=== PATIENT | female | born 1940 | race Caucasian/White ===

== ENCOUNTER 2022-08-25 08:04 | Outpatient (CLI) | payer MEDICARE | END 2022-08-25 08:05 | disposition home or self-care (01) | LOC: CSHWCC 08:04 | PROVIDERS: ATTEND Nurse Practitioner Family | DX: I70.244 Atherosclerosis of native arteries of left leg with ulceration of heel and midfoot (principal); L97.422 Non-pressure chronic ulcer of left heel and midfoot with fat layer exposed | CPT/HCPCS: 97139; G0463; 99204 ==

== ENCOUNTER 2022-09-20 10:41 | Outpatient (CLI) | payer MEDICARE | END 2022-09-20 10:42 | disposition home or self-care (01) | LOC: CSHWCC 10:41 | PROVIDERS: ATTEND Nurse Practitioner Family | DX: I70.244 Atherosclerosis of native arteries of left leg with ulceration of heel and midfoot (principal); L97.422 Non-pressure chronic ulcer of left heel and midfoot with fat layer exposed | CPT/HCPCS: 11042 ==